=== PATIENT | male | born 1970 | race Caucasian/White ===

== ENCOUNTER 2018-05-09 11:31 | Emergency (ER) | payer SELFPAY ==
[2018-05-09] MEDS ORDERED: LIDOCAINE 1% INJ-PF (10 MG/ML) 30 ML SDV ONE (11:37)
[2018-05-09] MEDS ORDERED: LIDOCAINE 1% INJ-PF (10 MG/ML) 30 ML SDV INJ ONE (11:42)
[2018-05-09] MEDS ORDERED: FENTANYL CITRATE INJ/PF 100 MCG/2 ML AMPUL IV ONE (11:43)
[2018-05-09] MEDS ORDERED: CEFAZOLIN 1 GM/D5W RTU 1 GM/50 ML RTUPB IV ONE (11:43)
--- NOTE | 2018-05-09 11:54 | ER Document Report ---
ED General - General Chief Complaint: Puncture Wound Stated Complaint: FINGER INJURY Time Seen by Provider: 05/09/18 11:37 Mode of Arrival: Ambulatory Information source: Patient Notes: 47-year-old male presents with complaints of nail gun injury of the second and third digits. Patient denies any other injuries notes tenderness is up-to-date his fingers are noted to be unable to be . TRAVEL OUTSIDE OF THE [place] IN LAST 30 DAYS: No - HPI Onset: Just prior to arrival Onset/Duration: Sudden Quality of pain: Sharp Severity: Severe Pain Level: 5 Associated symptoms: Other Exacerbated by: Movement Relieved by: Denies Similar symptoms previously: Yes - Multiple previous nail gun injuries Recently seen / treated by doctor: No - Related Data Allergies/Adverse Reactions: No Known Allergies Allergy (Unverified 05/09/18 11:31) Past Medical History - Social History Smoking Status: Current Every Day Smoker Cigarette use (# per day): Yes Chew tobacco use (# tins/day): No Smoking Education Provided: No Family History: Reviewed & Not Pertinent Review of Systems - Review of Systems Notes: REVIEW OF SYSTEMS: CONSTITUTIONAL : Denies fever, chills, or sweats. Denies recent illness. EENT: Denies eye, ear, throat, or mouth pain or symptoms. Denies nasal or sinus congestion or discharge. Denies throat, tongue, or mouth swelling or difficulty swallowing. CARDIOVASCULAR: Denies chest pain. Denies palpitations or racing or irregular heart beat. Denies ankle edema. RESPIRATORY: Denies cough, cold, or chest congestion. Denies shortness of breath, difficulty breathing, or wheezing. GASTROINTESTINAL: Denies abdominal pain or distention. Denies nausea, vomiting , or diarrhea. Denies blood in vomitus, stools, or per rectum. Denies black, tarry stools. Denies constipation. GENITOURINARY: Denies difficulty urinating, painful urination, burning, frequency, blood in urine, or discharge. MUSCULOSKELETAL: Denies back or neck pain or stiffness. Denies joint pain or swelling. SKIN: Nail of the second third digits HEMATOLOGIC : Denies easy bruising or bleeding. LYMPHATIC: Denies swollen, enlarged glands. NEUROLOGICAL: Denies confusion or altered mental status. Denies passing out or loss of consciousness. Denies dizziness or lightheadedness. Denies headache. Denies weakness or paralysis or loss of use of either side. Denies problems with gait or speech. Denies sensory loss, numbness, or tingling. Denies seizures. PSYCHIATRIC: Denies anxiety or stress. Denies depression, suicidal ideation, or homicidal ideation. ALL OTHER SYSTEMS REVIEWED AND NEGATIVE. Dictation was performed using [employer] recognition software PHYSICAL EXAMINATION: GENERAL: Well-appearing, well-nourished and in no acute distress. HEAD: Atraumatic, normocephalic. EYES: Pupils equal round extraocular movements intact, conjunctiva are normal. ENT: Nares patent NECK: Normal range of motion LUNGS: No respiratory distress Musculoskeletal: Normal range of motion NEUROLOGICAL: Normal speech, normal gait. PSYCH: Normal mood, normal affect. SKIN: Nail through the pad of the right hand second digit through the distal phalanx of the third digit and exits just posterior to the nailbed on the medial aspect Course - Re-evaluation Re-evalutation: Patient has good sensation 05/09/18 11:53 pt immediately evaluated, digital blocks performed, xray notes no obvious fracture, contacting dr canchola but our phone system will not work, and I am not allowed to have his cell number. 05/09/18 11:57 05/09/18 12:14 Dr. canchola requests I pulled the nail out, states that is what he would do and clean with betadine and follow up in office later in the week 05/09/18 12:39 After sensorcaine patient and I were able ot pull out the nail 05/09/18 13:08 Finger has been soaked in Betadine and injected through high-pressure multiple times 05/09/18 14:41 Patient is insisting that they be discharged immediately, patient was discharged at his request I am extremely concerned about infectious process nerve injury and ligamentous injury the patient refuses any further care and wishes to leave After performing a Medical Screening Examination, I estimate there is LOW risk for OPEN FRACTURE, COMPARTMENT SYNDROME, TENDON RUPTURE, ACUTE NEUROVASCULAR INJURY, or RETAINED FOREIGN BODY, thus I consider the discharge disposition reasonable. Also, there is no evidence or peritonitis, sepsis, or toxicity. I have reevaluated this patient multiple times and no significant life threatening changes are noted. The patient and I have discussed the diagnosis and risks, and we agree with discharging home with close follow-up with the understanding that symptoms and presentations can change. We also discussed returning to the Emergency Department immediately if new or worsening symptoms occur. We have discussed the symptoms which are most concerning (e.g., changing or worsening pain, fever, numbness, weakness, cool or painful digits) that necessitate immediate return. - Diagnostic Test Radiology reviewed: Image reviewed - Nail noted between second and third digits of the right hand on x-ray finger 3 view, Reports reviewed Procedures - Additional Procedures foreign body removal Time performed: 12:00 - removal of nail with forceps and traction digital nerve block Time performed: 11:45 - 10 cc of sensorcaine without epi , complete nerve block performed Discharge - Discharge Clinical Impression: Foreign body of finger of right hand Qualifiers: Encounter type: initial encounter Qualified Code(s): S60.459A - Superficial foreign body of unspecified finger, initial encounter Phalanx, distal fracture of finger Qualifiers: Encounter type: initial encounter Finger: unspecified finger Fracture type: open Fracture alignment: nondisplaced Qualified Code(s): S62.669B - Nondisplaced fracture of distal phalanx of unspecified finger, initial encounter for open fracture Condition: Stable Disposition: HOME, SELF-CARE Instructions: Foreign Body ([facility]) Prescriptions: Amoxicillin/Potassium Clav [Augmentin 875-125 Tablet] 1 each PO BID #20 tablet Oxycodone HCl/Acetaminophen [Percocet 5-325 mg Tablet] 1 tab PO Q6 #15 tab Referrals: JUAREZ CANCHOLA DO [ACTIVE STAFF] - Follow up in 3-5 days
--- NOTE | 2018-05-09 12:05 | RADIOLOGY REPORT (SQ) ---
EXAM DESCRIPTION: FINGER RIGHT COMPLETED DATE/TIME: 05/09/2018 11:51 am REASON FOR STUDY: Injury with Nail gun, Nail to fingers COMPARISON: None. NUMBER OF VIEWS: Three views. TECHNIQUE: AP, lateral, and oblique images acquired of the right hand. LIMITATIONS: None. FINDINGS: MINERALIZATION: Normal. BONES: No acute fracture or dislocation. No worrisome bone lesions. SOFT TISSUES: No soft tissue swelling. No foreign body. OTHER: There is evidence of a nail passing obliquely through the distal phalanx of the right 3rd fing er. The nail of overlies the soft tissues of the 2nd distal phalanx dorsally. IMPRESSION: Nail extending through distal phalanx of right 3rd finger. TECHNICAL DOCUMENTATION: JOB ID: [id number] [id number] 2010 [employer]- All Rights Reserved Reading location - IP/workstation name: [email or web address]
[2018-05-09] MEDS ORDERED: BUPIVACAINE HCL 0.5 % INJ/PF 30 ML SDV INJ ONE (12:08)
[2018-05-09] MEDS ORDERED: LORAZEPAM INJ 2 MG/1 ML VIAL ONE (12:11)
[2018-05-09] MEDS ORDERED: LORAZEPAM INJ 2 MG/1 ML VIAL IV ONE (12:15)
--- NOTE | 2018-05-09 13:11 | RADIOLOGY REPORT (SQ) ---
EXAM DESCRIPTION: FINGER RIGHT COMPLETED DATE/TIME: 05/09/2018 12:55 pm REASON FOR STUDY: post nail removal COMPARISON: 05/09/2018 earlier. NUMBER OF VIEWS: 4 images of the right hand and 3rd finger. LIMITATIONS: None. FINDINGS: Nail foreign body has been removed. No persistent metallic foreign bodies. No displaced fracture fragments. OTHER: No other significant finding. IMPRESSION: Status post foreign body removal. No persistent metal. No displaced fracture. TECHNICAL DOCUMENTATION: JOB ID: [id number] Reading location - IP/workstation name: [email or web address]
== END 2018-05-09 13:23 | disposition home or self-care (01) ==
LOC: ER 11:31
DX: S62.66 Nondisplaced fracture of distal phalanx of finger (principal); W29.4XXA Contact with nail gun, initial encounter; F17.210 Nicotine dependence, cigarettes, uncomplicated
CPT/HCPCS: 99283; 96375; 96365; 73140; 64450; J3490 ×2; J0690; J3010; J2060